=== PATIENT | male | born 1975 | race Caucasian/White ===

== ENCOUNTER 2016-12-09 15:13 | Emergency (ER) | payer OTHER ==
[~2016-12-09 15:13] MED LIST: AMOXICILLIN500 M2 PO; CIPRO500 MG PO; CLINDAMYCIN HC300 MG PO; CLINDAMYCIN150 MG PO; CYCLOBENZAPRINE10 MG PO; FLEXERIL5 MG PO; HYDROCODONE BIT1 T11 PO; MOTRIN800 MG PO; NAPROSYN500 MG PO; NKHM; NORCO 325 MG-51 TAB PO; PARAFON FORTE500 MG PO; PERCOCET 325 MG1 TA7 PO; PREVACID30 M2 PO; TESSALON PERLE100 M1 PO; TRAMADOL HCL50 MG PO; ULTRAM50 MG PO; VICODIN 5/500 505 MG PO; VITAMIN B12500 MCG PO; VOLTAREN50 M1 PO; ZITHROMAX Z PA250 MG PO; ZITHROMAX250 MG PO; ZYRTEC10 MG PO
[2016-12-09] MEDS ORDERED: PREDNISONE10 MG PO (15:50)
== END 2016-12-09 15:49 | disposition home or self-care (01) ==
LOC: ED 15:13
DX: M54.41 Lumbago with sciatica, right side (principal); G89.29 Other chronic pain; F17.200 Nicotine dependence, unspecified, uncomplicated; Z88.0 Allergy status to penicillin; Z88.1 Allergy status to other antibiotic agents; Z88.2 Allergy status to sulfonamides; Z88.6 Allergy status to analgesic agent

== ENCOUNTER 2019-11-06 17:31 | Emergency (ER) | payer OTHER ==
[~2019-11-06] VITALS: Ht 182.8 cm; Wt 99.8 kg
[~2019-11-06 17:31] MED LIST changes: +PREDNISONE10 MG PO
[2019-11-06] MEDS ORDERED: FLONASE ALLERG9.9 ML NAS ×2 (18:45→18:54)
[2019-11-06] MEDS ORDERED: ZITHROMAX250 MG PO ×2 (18:45→18:54)
[2019-11-06] MEDS ORDERED: ZYRTEC10 MG PO ×2 (18:45→18:54)
== END 2019-11-06 18:46 | disposition home or self-care (01) ==
LOC: ED 17:31
DX: J01.90 Acute sinusitis, unspecified (principal); F17.200 Nicotine dependence, unspecified, uncomplicated; Z88.8 Allergy status to other drugs, medicaments and biological substances; Z88.0 Allergy status to penicillin; Z88.2 Allergy status to sulfonamides; Z79.899 Other long term (current) drug therapy; Z79.2 Long term (current) use of antibiotics

== ENCOUNTER → 2024-09-15 | Outpatient (CLI) | payer OTHER ==
[~2024-09-15] MED LIST changes: +FLONASE ALLERG9.9 ML NAS
== END | disposition home or self-care (01) ==
LOC: RAD 10:00
PROVIDERS: ATTEND Family Medicine
DX: S20.219A Contusion of unspecified front wall of thorax, initial encounter (principal); M47.816 Spondylosis without myelopathy or radiculopathy, lumbar region; M48.062 Spinal stenosis, lumbar region with neurogenic claudication; M50.323 Other cervical disc degeneration at C6-C7 level; M25.78 Osteophyte, vertebrae; V89.2XXA Person injured in unspecified motor-vehicle accident, traffic, initial encounter; X58.XXXA Exposure to other specified factors, initial encounter; Y93.89 Activity, other specified; Y92.89 Other specified places as the place of occurrence of the external cause; Y99.8 Other external cause status